=== PATIENT | female | born 1950 | race Caucasian/White ===

== ENCOUNTER 2016-11-21 18:35 | Emergency (ER) | payer BC ==
[2016-11-21 19:08] LABS: URINE BILIRUBIN Negative (NEGATIVE); URINE GLUCOSE (UA) Negative (NEGATIVE); URINE KETONE Negative (NEGATIVE); URINE NITRITE Positive (NEGATIVE); URINE PROTEIN Negative (NEGATIVE); URINE UROBILINOGEN 0.2 E.U/dl (0.2-1.0)
[2016-11-21 19:13] LABS: URINE APPEARANCE CLOUDY; URINE BLOOD 1+ (NEGATIVE); URINE COLOR YELLOW; URINE LEUK ESTERASE 2+ (NEGATIVE)
[2016-11-21 19:17] VITALS: BP 139/95; PULSE 75; TEMP 97.9; BMI 27.8
[2016-11-21 19:19] LABS: URINE BACTERIA MANY /hpf (NEGATIVE); URINE WBC 30-50 (3-5)
--- NOTE | 2016-11-21 19:21 | PDOC ---
History of Present Illness <Abhay Hanna - Last Filed: 11/21/16 19:39> - General History Source: Patient, Family, Old Records Exam Limitations: No Limitations - History of Present Illness Initial Comments: 11/21/16 20:36 The patient is a 66 year old female presenting with her , with a significant past medical history of HTN, HLD, GERD, hypothyroidism and chronic back pain who presents to the emergency department today complaining of an urinary tract infection. The patient notes that she came in a couple weeks ago to treat a urinary tract infection and is still experiencing pain. The patient present for further evaluation. <Sean Amaya - Last Filed: 11/21/16 21:12> - General Chief Complaint: Urinary Problem Stated Complaint: REVISIT FOR UTI Time Seen by Provider: 11/21/16 19:20 Past History - Past Medical History GI Disorders: Yes (DIVERTICULOSIS, SPASTIC ESOPHAGUS) HTN: Yes Hypercholesterolemia: Yes - Psycho/Social/Smoking Cessation Hx Anxiety: No Suicidal Ideation: No Smoking History: Never smoked Hx Alcohol Use: No Drug/Substance Use Hx: No Substance Use Type: None <Abhay Hanna - Last Filed: 11/21/16 19:39> <Sean Amaya - Last Filed: 11/21/16 21:12> - Past Medical History Allergies/Adverse Reactions: Allergies Allergy/AdvReac Type Severity Reaction Status Date / Time No Known Allergies Allergy Verified 11/10/16 21:01 Home Medications: Ambulatory Orders Duloxetine HCl [Cymbalta -] 60 mg PO DAILY 11/10/14 Esomeprazole Mag Trihydrate [Nexium] 40 mg PO DAILY 11/10/14 Gabapentin 1,000 mg PO DAILY 11/10/14 Losartan/Hydrochlorothiazide [Losartan-Hctz 50-12.5 mg Tab] 1 each PO DAILY Pilocarpine HCl 5 mg PO BID 11/10/14 Rosuvastatin Calcium [Crestor] 10 mg PO DAILY 11/10/14 Cholecalciferol (Vitamin D3) [Vitamin D3 -] 5,000 unit PO DAILY 11/10/16 Levothyroxine [Synthroid -] 25 mcg PO DAILY 11/10/16 Nitrofurantoin Monohyd/M-Cryst [Macrobid -] 100 mg PO BID #14 capsule 11/10/16 Phenazopyridine HCl [Pyridium] 200 mg PO TID #6 tablet 11/10/16 Ubidecarenone [Co Q-10] 200 mg PO DAILY 11/10/16 Cefpodoxime Proxetil [Vantin -] 200 mg PO Q12H #20 tablet 11/21/16 Phenazopyridine HCl [Pyridium] 200 mg PO TID #9 tablet 11/21/16 Review of Systems - Review of Systems Able to Perform ROS?: Yes Comments:: 11/21/16 20:36 GENERAL/CONSTITUTIONAL: No fever or chills. No weakness. HEAD, EYES, EARS, NOSE AND THROAT: No change in vision. No ear pain or discharge. No sore throat. CARDIOVASCULAR: No chest pain or shortness of breath. RESPIRATORY: No cough, wheezing, or hemoptysis. GASTROINTESTINAL: No nausea, vomiting, diarrhea or constipation. GENITOURINARY: (+) dysuria MUSCULOSKELETAL: No joint or muscle swelling or pain. No neck or back pain. SKIN: No rash NEUROLOGIC: No headache, vertigo, loss of consciousness, or change in strength/ sensation. ENDOCRINE: No increased thirst. No abnormal weight change. HEMATOLOGIC/LYMPHATIC: No anemia, easy bleeding, or history of blood clots. ALLERGIC/IMMUNOLOGIC: No hives or skin allergy. <Sean Amaya - Last Filed: 11/21/16 21:12> *Physical Exam - Vital Signs Last Vital Signs Temp Pulse Resp BP Pulse Ox 97.9 F 75 16 139/95 99 11/21/16 18:56 11/21/16 18:56 11/21/16 18:56 11/21/16 18:56 11/21/16 18:56 <Abhay Hanna - Last Filed: 11/21/16 19:39> - Vital Signs Last Vital Signs Temp Pulse Resp BP Pulse Ox 97.9 F 75 16 139/95 99 11/21/16 18:56 11/21/16 18:56 11/21/16 18:56 11/21/16 18:56 11/21/16 18:56 - Physical Exam Comments: 11/21/16 20:37 GENERAL: Awake, alert, and fully oriented, in no acute distress HEAD: No signs of trauma EYES: PERRLA, EOMI, sclera anicteric, conjunctiva clear ENT: Auricles normal inspection, hearing grossly normal, nares patent, oropharynx clear without exudates. Moist mucosa NECK: Normal ROM, supple, no lymphadenopathy, JVD, or masses LUNGS: Breath sounds equal, clear to auscultation bilaterally. No wheezes, and no crackles HEART: Regular rate and rhythm, normal S1 and S2, no murmurs, rubs or gallops ABDOMEN: Soft, nontender, normoactive bowel sounds. No guarding, no rebound. No masses EXTREMITIES: Normal range of motion, no edema. No clubbing or cyanosis. No cords, erythema, or tenderness NEUROLOGICAL: Cranial nerves II through XII grossly intact. Normal speech, normal gait SKIN: Warm, Dry, normal turgor, no rashes or lesions noted. <Sean Amaya - Last Filed: 11/21/16 21:12> ED Treatment Course - ADDITIONAL ORDERS Additional order review: Laboratory Results 11/21/16 18:56 Urine Color Yellow Urine Appearance Cloudy Urine pH 7.0 D Ur Specific Eccles 1.020 Urine Protein Negative Urine Glucose (UA) Negative Urine Ketones Negative Urine Blood 1+ H Urine Nitrite Positive Urine Bilirubin Negative Urine Urobilinogen 0.2 e.u/dl Ur Leukocyte Esterase 2+ H Urine RBC 10-20 Urine WBC 30-50 Ur Epithelial Cells Few Urine Bacteria Many <Abhay Hanna - Last Filed: 11/21/16 19:39> - ADDITIONAL ORDERS Additional order review: Laboratory Results 11/21/16 18:56 Urine Color Yellow Urine Appearance Cloudy Urine pH 7.0 D Ur Specific Eccles 1.020 Urine Protein Negative Urine Glucose (UA) Negative Urine Ketones Negative Urine Blood 1+ H Urine Nitrite Positive Urine Bilirubin Negative Urine Urobilinogen 0.2 e.u/dl Ur Leukocyte Esterase 2+ H Urine RBC 10-20 Urine WBC 30-50 Ur Epithelial Cells Few Urine Bacteria Many - Medications Given in the ED: ED Medications Discontinued Medications Generic Name Dose Route Start Last Admin Trade Name Freq PRN Reason Stop Dose Admin Cephalexin HCl 750 mg 11/21/16 19:37 11/21/16 19:40 Keflex - PO 11/21/16 19:38 750 mg ONCE ONE Administration Phenazopyridine HCl 200 mg 11/21/16 19:37 11/21/16 19:44 Pyridium - PO 11/21/16 19:38 200 mg ONCE ONE Administration <Sean Amaya - Last Filed: 11/21/16 21:12> Medical Decision Making - Medical Decision Making 11/21/16 20:37 MDM: The patient presented to the emergency room 11/10/16 and was given 10 days of Macrobid to treat her UTI. The patient has finished her antibiotics and is reportedly experiencing worsening pain. The patient's culture from 11/10/16 was e coli and resistant to all antibiotics. The patient will receive 3 days of antibiotic and peridium. The patient should drink 5 20oz bottles of water per day until she sees the urologist. <Jose LuisSean - Last Filed: 11/21/16 21:12> *DC/Admit/Observation/Transfer - Discharge Dispostion Admit: No - Attestations Physician Attestion: 11/21/16 19:21 I, Dr. Abhay Hanna, attest that this document has been prepared under my direction and personally reviewed by me in its entirety. I further attest, that it accurately reflects all work, treatment, procedures and medical decision -making performed by me. <Abhay Hanna - Last Filed: 11/21/16 19:39> - Attestations Scribe Attestion: 11/21/16 20:37 Documentation prepared by Sean Amaya, acting as medical unit secretary for Abhay Hanna MD. <Sean Amaya - Last Filed: 11/21/16 21:12> Diagnosis at time of Disposition: Recurrent UTI (urinary tract infection) - Discharge Dispostion Disposition: HOME Condition at time of disposition: Good - Prescriptions Prescriptions: Phenazopyridine HCl [Pyridium] 200 mg PO TID #9 tablet Cefpodoxime Proxetil [Vantin -] 200 mg PO Q12H #20 tablet - Referrals Referrals: Yassine Livingston [Primary Care Provider] - - Patient Instructions Printed Discharge Instructions: DI for Urinary Tract Infection (UTI) Additional Instructions: Jazlyn- It was a pleasure to care for you today. Sorry this has come back again. Get that water, 5, 20 ounce bottles of water a day.! Return to us if worse or new symptoms. See the urologist next week Best- DR. Abhay Hanna
[2016-11-21] MEDS ORDERED: PHENAZOPYRIDINE HCL 100 MG TABLET (FP) PO ONE (19:37)
[2016-11-21] MEDS ORDERED: CEPHALEXIN MONOHYDRATE 250 MG CAPSULE (FP) PO ONE (19:37)
[2016-11-21] MEDS ORDERED: CEPHALEXIN MONOHYDRATE 500 MG CAPSULE (UD) ONE (19:38)
[2016-11-21] MEDS ORDERED: CEPHALEXIN MONOHYDRATE 250 MG CAPSULE (FP) ONE (19:38)
[2016-11-21] MEDS ORDERED: PHENAZOPYRIDINE HCL 100 MG TABLET (FP) ONE (19:40)
== END 2016-11-21 19:45 | disposition home or self-care (01) ==
LOC: FER 18:35
DX: Z87.440 Personal history of urinary (tract) infections (principal); K21.9 Gastro-esophageal reflux disease without esophagitis; E78.5 Hyperlipidemia, unspecified; I10 Essential (primary) hypertension; G89.29 Other chronic pain
CPT/HCPCS: 81003; 81015; 99282-25

== ENCOUNTER 2019-12-31 17:18 | Emergency (ER) | payer OTHER, BC ==
[2019-12-31 17:31] VITALS: BP 117/77; PULSE 88; TEMP 97.9; BMI 26.4
--- NOTE | 2019-12-31 17:42 | PDOC ---
History of Present Illness - General Chief Complaint: Laceration Stated Complaint: LACERATION TO FOREHEAD Time Seen by Provider: 12/31/19 17:23 - History of Present Illness Initial Comments: 12/31/19 17:39 [id number] w PMHx HLD HTN presenting w 2cm forehead midline laceration to forehead after tripping forward on pants, hitting head on wall. No LOC, nausea/vomiting, headache, chest pain/SOB, vision change. Not on blood thinners Past History - Past Medical History Allergies/Adverse Reactions: Allergies Allergy/AdvReac Type Severity Reaction Status Date / Time No Known Allergies Allergy Verified 11/10/16 21:01 Home Medications: Ambulatory Orders Duloxetine HCl [Cymbalta -] 60 mg PO DAILY 11/10/14 Esomeprazole Mag Trihydrate [Nexium] 40 mg PO DAILY 11/10/14 Gabapentin 1,000 mg PO DAILY 11/10/14 Losartan/Hydrochlorothiazide [Losartan-Hctz 50-12.5 mg Tab] 1 each PO DAILY Pilocarpine HCl 5 mg PO BID 11/10/14 Rosuvastatin Calcium [Crestor] 10 mg PO DAILY 11/10/14 Cholecalciferol (Vitamin D3) [Vitamin D3 -] 5,000 unit PO DAILY 11/10/16 Levothyroxine [Synthroid -] 25 mcg PO DAILY 11/10/16 Nitrofurantoin Monohyd/M-Cryst [Macrobid -] 100 mg PO BID #14 capsule 11/10/16 Phenazopyridine HCl [Pyridium] 200 mg PO TID #6 tablet 11/10/16 Ubidecarenone [Co Q-10] 200 mg PO DAILY 11/10/16 Cefpodoxime Proxetil [Vantin -] 200 mg PO Q12H #20 tablet 11/21/16 Phenazopyridine HCl [Pyridium] 200 mg PO TID #9 tablet 11/21/16 COPD: Yes GI Disorders: Yes (DIVERTICULOSIS, SPASTIC ESOPHAGUS) HTN: Yes Hypercholesterolemia: Yes Other medical history: SYSTEMIC SJOGREN - Psycho Social/Smoking Cessation Hx Smoking History: Never smoked Information on smoking cessation initiated: No Hx Alcohol Use: Yes (OCCASSIONAL) Drug/Substance Use Hx: No Substance Use Type: None Review of Systems - Review of Systems Constitutional: No: Chills, Fever HEENTM: No: Eye Pain, Nose Pain, Throat Pain Respiratory: No: Cough, Shortness of Breath Cardiac (ROS): No: Chest Pain, Lightheadedness ABD/GI: No: Abdominal Distended, Constipated, Diarrhea, Nausea, Vomiting : No: Burning, Dysuria Musculoskeletal: No: Back Pain, Joint Pain, Neck Pain Integumentary: No: Bruising, Dryness Neurological: No: Headache, Seizure Psychiatric: No: Anxiety, Depression Endocrine: No: Intolerance to Cold, Intolerance to Heat Hematologic/Lymphatic: No: Anemia, Blood Clots *Physical Exam - Vital Signs Last Vital Signs Temp Pulse Resp BP Pulse Ox 97.9 F 88 18 117/77 96 12/31/19 17:20 12/31/19 17:20 12/31/19 17:20 12/31/19 17:20 12/31/19 17:20 - Physical Exam General Appearance: Yes: Nourished, Appropriately Dressed. No: Apparent Distress HEENT: positive: EOMI, CARO, Normal Voice, Hearing Grossly Normal, Other (2cm laceration midline, no bleeding). negative: Scleral Icterus (R), Scleral Icterus (L) Neck: positive: Supple. negative: Tender, Rigid Respiratory/Chest: positive: Lungs Clear, Normal Breath Sounds. negative: Chest Tender, Respiratory Distress Cardiovascular: positive: Regular Rhythm, Regular Rate, S1, S2. negative: Edema , Murmur Gastrointestinal/Abdominal: positive: Normal Bowel Sounds, Flat, Soft. negative : Tender, Organomegaly Extremity: positive: Normal Capillary Refill Integumentary: positive: Normal Color. 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 negative: Numbness, Sensory Deficit, Confused, Disoriented Procedures - Laceration/Wound Repair Anterior Head Wound Length: to 2.5 cm Wound Explored: clean Wound's Depth, Shape: linear Irrigated w/ Saline: Yes Betadine Prep: No Amount of Anesthetic (ccs): 0 Wound Debrided: minimal Wound Repaired With: Dermabond Number of Sutures: 0 Layer Closure: Yes Number of Deep Layer Sutures: 0 Sterile Dressing Applied: No Splint Applied: No Sling Applied: No Medical Decision Making - Medical Decision Making 12/31/19 17:43 [id number] w PMHx HLD HTN presenting w 2cm forehead laceration to forehead s/p mechanical fall. Neuro intact. Laceration cleaned, glued w dermabond DC home w lac care instructions Discharge - Discharge Information Problems reviewed: Yes Clinical Impression/Diagnosis: Laceration of head Qualifiers: Encounter type: initial encounter Location of open wound of head: scalp Foreign body presence: without foreign body Qualified Code(s): S01.01XA - Laceration without foreign body of scalp, initial encounter Condition: Improved Disposition: HOME - Admission No - Follow up/Referral Referrals: Yassine Livingston [Primary Care Provider] - - Patient Discharge Instructions Patient Printed Discharge Instructions: DI for Laceration Repair With Dermabond , DI for Closed Head Injury Additional Instructions: Follow up with your primary care doctor - Post Discharge Activity
--- NOTE | 2019-12-31 17:47 | PDOC ---
Attending Attestation - Resident Resident Name: Gold Galvez - ED Attending Attestation I have performed the following: I have examined & evaluated the patient, The case was reviewed & discussed with the resident, I agree w/resident's findings & plan, Exceptions are as noted - HPI HPI: 12/31/19 17:42 Fell and injured forehead. No loss of consciousness. No headache or neurologic symptoms. No aspirin or anticoagulants - Physicial Exam PE: 12/31/19 17:43 Alert oriented well-developed well-nourished no acute distress cheerful and cooperative Afebrile, vital signs normal Head: 2 cm vertical laceration upper mid forehead. Superficial. No swelling, hematoma, depression, or crepitus. Involves only the epidermis. PERRLA 4 mm, fundi benign with sharp disc margins and good central venous pulsations. EOMs full without diplopia. Visual silvestre intact to confrontation ENT clear Neurological C2 to 12 intact. Strength full and symmetric. No focal sensorimotor deficits. Cerebellar intact. Gait stable and unimpaired. No deformity or visible or palpable trauma to the neck. Full range of motion without pain No deformity or visible or palpable trauma to the chest abdomen spine pelvis or extremities - Medical Decision Making 12/31/19 17:45 Assessment: Superficial laceration of the forehead. No sign of serious head injury Plan: Wound was scrubbed and irrigated with normal saline, hemostasis with pressure. Small amount of loose skin was debrided. The edges of the wound were straight and were well approximated with Dermabond. Dressing was applied. Wound care instructions were given to the patient and her . Head injury instructions were furnished as well. Patient was fully ambulatory, in no pain or other distress at discharge with her to follow-up as needed if there are any further symptoms.
== END 2019-12-31 17:50 | disposition home or self-care (01) ==
LOC: FER 17:18
PROC: 0HQ1XZZ Repair Face Skin, External Approach (ICD-10-PCS; principal; 2019-12-31)
DX: S01.01XA Laceration without foreign body of scalp, initial encounter (principal); W18.09XA Striking against other object with subsequent fall, initial encounter; Y93.89 Activity, other specified; Y92.009 Unspecified place in unspecified non-institutional (private) residence as the place of occurrence of the external cause; I10 Essential (primary) hypertension; E78.5 Hyperlipidemia, unspecified; K57.92 Diverticulitis of intestine, part unspecified, without perforation or abscess without bleeding
CPT/HCPCS: 99283-25

== ENCOUNTER 2022-10-18 08:01 | Day surgery (SDC) | payer OTHER, BC ==
[2022-10-16 15:28] VITALS: BMI 24.0
[2022-10-18 10:03] VITALS: PULSE 72
[2022-10-18 10:08] VITALS: BP 136/70; RESP 19; TEMP 98.1
== END 2022-10-18 10:15 | disposition home or self-care (01) ==
LOC: FASU-ENDO 08:01
PROVIDERS: ATTEND Internal Medicine Gastroenterology
PROC: 0DBK8ZX Excision of Ascending Colon, Via Natural or Artificial Opening Endoscopic, Diagnostic (ICD-10-PCS; principal; 2022-10-18 09:01)
DX: Z12.11 Encounter for screening for malignant neoplasm of colon (principal); D12.2 Benign neoplasm of ascending colon; K57.30 Diverticulosis of large intestine without perforation or abscess without bleeding
CPT/HCPCS: 88305-TC